=== PATIENT | female | born 1985 | race Caucasian/White ===

== ENCOUNTER 2018-01-28 15:48 | Emergency (ER) | payer OTHER ==
[~2018-01-28] VITALS: Ht 157.5 cm; Wt 63.5 kg
[~2018-01-28 15:48] MED LIST: DOCU100 PO; IBUP800 PO; MULVITMINE; NAPR500 PO; ONDA4ODT MM; OXYACE5T PO; PERM5TC TOP; PREN-16 PO; RXONDA4ODT MM
[2018-01-28 16:41] LABS: Source, Urine Clean Catch
[2018-01-28 16:48] LABS: Appearance, Urine Clear (Clear); Bilirubin, Urine Neg (Neg); Blood, Urine 1+ (Neg); Color, Urine Yellow (P-Yellow); Glucose Qualitative, Urine Neg (Neg); Ketones, Urine Neg (Neg); Leukocyte Esterase, Urine 2+ (Neg); Nitrite, Urine Neg (Neg); Protein, Urine Neg (Neg); Urobilinogen, Urine NORM (Normal)
[2018-01-28 17:27] LABS: Squamous Epithelial Cells Mod /hpf (Few)
[2018-01-28 17:28] LABS: Bacteria Rare /hpf
== END 2018-01-28 17:54 | disposition home or self-care (01) ==
LOC: ER 15:48
PROVIDERS: Physician Assistant
DX: O99.89 Other specified diseases and conditions complicating pregnancy, childbirth and the puerperium (principal); M54.5 Low back pain; Z88.8 Allergy status to other drugs, medicaments and biological substances; Z79.899 Other long term (current) drug therapy; Z3A.13 13 weeks gestation of pregnancy
CPT/HCPCS: 81001; 87086; 99283

== ENCOUNTER → 2018-06-26 | Outpatient (CLI) | payer OTHER | END | disposition home or self-care (01) | LOC: LAB 09:28 → LAB SHORT 09:28 | DX: Z34.81 Encounter for supervision of other normal pregnancy, first trimester (principal) | CPT/HCPCS: 87081; 87653 ==

== ENCOUNTER 2018-07-02 02:46 | Inpatient (IN) | payer OTHER ==
[~2018-07-02] VITALS: Ht 157.5 cm; Wt 75.0 kg
[2018-07-02] MEDS ORDERED: POTA8 (03:09)
[2018-07-02] MEDS ORDERED: Apple Cider Vi300 MG (03:10)
[2018-07-02] MEDS ORDERED: MAGOXI400 (03:10)
[2018-07-02 03:11] LABS: BASOPHILS ABSOLUTE AUTO 0.07 K/mm3 (0.00-0.23); BASOPHILS PERCENT AUTO 1 % (0-2); EOSINOPHILS PERCENT AUTO 1 % (0-6); Hematocrit 37.5 % (33.0-51.0); Hemoglobin 12.3 g/dL (11.5-16.0); IMMATURE GRAN PERCENT AUTO 2 % (0-1); LYMPHOCYTES ABSOLUTE AUTO 1.81 K/mm3 (0.84-5.20); LYMPHOCYTES PERCENT AUTO 14 % (21-46); MONOCYTES PERCENT AUTO 7 % (4-13); Mean Corpuscular HGB 33.1 pg (26.0-34.0); Mean Corpuscular HGB Conc 32.8 g/dL (31.5-36.5); Mean Corpuscular Volume 101 fL (80-100); Mean Platelet Volume 11.1 fL (9.1-12.4); NEUTROPHILS ABSOLUTE AUTO 10.27 K/mm3 (1.96-9.15); NEUTROPHILS PERCENT AUTO 77 % (41-73); Platelet Count 225 K/mm3 (150-400); RDW Coefficient Variation 13.6 % (11.7-14.2); RDW Standard Deviation 50.7 fL (35.1-46.3); Red Blood Cell Count 3.72 M/mm3 (3.80-5.20); White Blood Cell Count 13.35 K/mm3 (4.00-11.30)
--- NOTE | 2018-07-02 08:32 | NUR ---
PATIENT PERMISSION PATIENT GAVE THIS STUDENT NURSE PERMISSION TO PROVIDE CARE ON 07/02/18 FROM [id number].
--- NOTE | 2018-07-02 12:19 | NUR ---
07/02/18 1219 Zohreh Vera 1142 PT ARRIVED TO [facility] OR SUITE WITH [employer] CATHETER INTACT DRAINING CLEAR YELLOW URINE
--- NOTE | 2018-07-02 13:05 | NUR ---
REPORT TO TL SCHMID RN FOR LUNCH RELIEF
--- NOTE | 2018-07-02 14:20 | NUR ---
dressing is saturated, but not leaking thru, will continue to monitor
--- NOTE | 2018-07-02 14:32 | NUR ---
pt started pumping with [facility] medalla pump, to pump for 10-15 minutes every 3 hours
--- NOTE | 2018-07-02 15:45 | NUR ---
REPORT TO CHARBEL BAUGH RN
--- NOTE | 2018-07-02 17:10 | NUR ---
2 RN ASSIST TO WHEELCHAIR ESCORTED TO NURSERY TO SEE FOR THE FIRST TIME. PT STATES HER PAIN IS UNDER CONTROL AT THIS TIME.
--- NOTE | 2018-07-02 21:29 | NUR ---
PT UP TO WHEELCHAIR TO GO TO NURSERY TO FEED NB. PT ABLE TO TRANSFER SELF WITH MINIMAL ASSIST FROM RN. HOWEVER, PT SHAKING WIH PAIN AFTER TRANSFER. PT STATES THAT SHE IS MOTIVATED TO SEE NB. PLAN TO MEDICATE FOR PAIN PER ORDER.
[2018-07-03 06:44] LABS: Hematocrit 30.9 % (33.0-51.0); Mean Corpuscular HGB 32.6 pg (26.0-34.0); Mean Corpuscular HGB Conc 32.4 g/dL (31.5-36.5); Mean Corpuscular Volume 101 fL (80-100); Mean Platelet Volume 11.2 fL (9.1-12.4); Platelet Count 196 K/mm3 (150-400); RDW Coefficient Variation 14.1 % (11.7-14.2); RDW Standard Deviation 51.1 fL (35.1-46.3); Red Blood Cell Count 3.07 M/mm3 (3.80-5.20)
--- NOTE | 2018-07-03 15:27 | NUR ---
This student nurse has permission to access patient information.
--- NOTE | 2018-07-03 21:28 | NUR ---
ASSIST BABY SLEEPING TEACHING SONE, DISCUSSED IMPORTANCE OF KEEPING BABY WARM BABY HAS MINIMAL BROWN FAT. MOM IS AWARE THAT SUPP AT BREAST IS BEST AND KEEPING FEEEINGS TO APPORX 15 MINUTES. DEMONSTRATED HAND EXPRESSION OF MILK. DISCUSSED NEW BEGINNINGS AND BREASTFEEDIING BOOK . HANDOUT ON STORING BREASTMILK.
--- NOTE | 2018-07-04 10:20 | NUR ---
sleeping, fob and baby back to room
--- NOTE | 2018-07-04 11:54 | NUR ---
ASSIST CURRENTLY BABY IS NOT MOTIVATED TO EAT AT LAST FEEDING RN REPORTS HAVING TO VERY HARD JUST TO GET BABY TO FINGER FEED. CURRENT PLAN IS TO HAVE BABY NURSE AT BREAST 10 MINUTES FOLLOWED BY 5-6 CC EBM FINGER FEEDING. THEN TO STRICTLY FINGER FEED EVERY OTHER FEEDING. I DISCUSSED WITH NURSE TO AND FEED 10-15 CC AT EACH FINGER FEEDING TODAY IF BABY IS ABLE . PUMPING/FEEDING LOG GIVEN TO PT.
--- NOTE | 2018-07-04 13:54 | NUR ---
dr comer was by, gave pt scripts for perc and motrin, gave verbal order that pt may discharge to boarder status tonight or may remain a patient until tomorrow morning, it is the patients choice
[2018-07-04] MEDS ORDERED: Percocet 5-3251 EACH PO (14:00)
[2018-07-04] MEDS ORDERED: IBUP800 PO (14:01)
--- NOTE | 2018-07-04 14:20 | NUR ---
PT TEARFUL OVER A FAMILY MATTER, REPORTS DOING OK, JUST WORRIED, HOLDING BABY. PAIN IS A 0/10
--- NOTE | 2018-07-04 18:28 | NUR ---
PT SLEEPING, BABY SLEEPING IN CRIB, WILL GIVE BABY VIT K WHEN MOM AND BABY ARE AWAKE
--- NOTE | 2018-07-05 14:50 | NUR ---
DISCHARGED TO BOARDER STATUS, EXPLAINED BOARDER STATUS TO MOM, PLANS TO LEAVE TO GO TO [facility] TO GET A PUMP, PLANS TO BE BACK BY 1700, OK IF WE FEED BABY PUMPED BREASTMILK IF HE GETS HUNGERY.
== END 2018-07-05 14:50 | disposition home or self-care (01) | DRG 786 ==
LOC: OBS 02:46 → BC 02:47 → OBS 03:05 → BC 03:07
PROVIDERS: Obstetrics & Gynecology; ADMIT Obstetrics & Gynecology
PROC: 6A550ZT Pheresis of Cord Blood Stem Cells, Single (ICD-10-PCS; 2018-07-02)
PROC: 10D00Z1 Extraction of Products of Conception, Low, Open Approach (ICD-10-PCS; principal; 2018-07-02 11:30)
DX: O44.13 Complete placenta previa with hemorrhage, third trimester (principal); O60.14X0 Preterm labor third trimester with preterm delivery third trimester, not applicable or unspecified; Z3A.36 36 weeks gestation of pregnancy; Z37.0 Single live birth
CPT/HCPCS: 36415; 51702; 85025; 85027; 86850; 86900; 86901; 86923; J0330; J0690; J1885; J2370; J2405; J2590; J2704; J2765; J3010; J7120